=== PATIENT | female | born 1995 | race Two or more races ===

== ENCOUNTER 2019-09-10 19:03 | Emergency (ER) | payer SELFPAY ==
[~2019-09-10] VITALS: Ht 165.1 cm; Wt 93.0 kg
--- NOTE | 2019-09-10 19:10 | NUR ---
PT BIBA C/O SYNCOPAL EPISODE WHILE AT A [facility]. +DIZZINESS. POSTERIOR HEAD LAC NOTED. +MINIMAL BLEEDING -NEUROLOGICAL DEFICITS. PT AAOX4, VSS,RESPIRATIONS EVEN AND UNLABORED ON RA W/ NAD NOTED. PT CONNECTED TO THE MONITOR AND POX
--- NOTE | 2019-09-10 19:15 | NUR ---
IV LINE ESTABLISHED. LH 22 G. BLOOD COLLECTED AND SENT TO LAB
[2019-09-10] MEDS ORDERED: IV NS 0.9% 1,000 ML BAG IV ONE (19:30)
[2019-09-10 19:43] LABS: BASOPHILS % (AUTO) 0.3 % (0.0-2.0); EOSINOPHILS % (AUTO) 0.8 % (0.0-6.0); HEMATOCRIT 36 % (33-45); LYMPHOCYTES # (AUTO) 2.4 /CMM (0.8-4.8); LYMPHOCYTES % (AUTO) 24.2 % (20.0-44.0); MEAN CORPUSCULAR HGB CONC 31 g/dl (31.0-36.0); MEAN CORPUSCULAR VOLUME 83 fL (82-100); MONOCYTES # (AUTO) 0.5 /CMM (0.1-1.30); MONOCYTES % (AUTO) 5.1 % (2.0-12.0); NEUTROPHILS % (AUTO) 69.6 % (43.0-81.0); PLATELET COUNT (AUTO) 326 /CMM (150-450); RED BLOOD CELL COUNT(AUTO) 4.31 MIL/uL (4.0-5.2)
[2019-09-10 19:54] LABS: CARBON DIOXIDE 25 mmol/L (21-32); CHLORIDE 107 mmol/L (98-107); POTASSIUM 3.9 mmol/L (3.5-5.1); SODIUM SERUM 140 mmol/L (136-145)
[2019-09-10 19:55] LABS: CREATININE 0.8 mg/dL (0.6-1.3); GLUCOSE 98 mg/dL (74-106); UREA NITROGEN, BLOOD 11 mg/dL (7-18)
--- NOTE | 2019-09-10 21:00 | NUR ---
PT TAKEN TO CT
--- NOTE | 2019-09-10 21:59 | NUR ---
DR DUKES AT BEDSIDE
--- NOTE | 2019-09-10 22:10 | NUR ---
Patient discharged to home in stable condition. Written and verbal after care instructions given. Patient verbalizes understanding of instruction.IV removed. Catheter intact and site benign. Pressure and 4x4 applied to site. No bleeding noted.pt. ambulatory with a steady gait
[2019-09-10 22:11] VITALS: BP 122/77
== END 2019-09-10 22:11 | disposition home or self-care (01) ==
LOC: ER 19:06
DX: S01.01XA Laceration without foreign body of scalp, initial encounter (principal); R55 Syncope and collapse; W18.39XA Other fall on same level, initial encounter; Y93.89 Activity, other specified; Y92.89 Other specified places as the place of occurrence of the external cause; Y99.8 Other external cause status
CPT/HCPCS: 12002; 36415; 70450; 71045; 80048; 83735; 84484; 85025; 96360; 99285; J7030